=== PATIENT | female | born 1980 | race Caucasian/White ===

== ENCOUNTER 2021-02-23 17:30 | Emergency (ER) | payer OTHER ==
[~2021-02-23] VITALS: Ht 162.6 cm; Wt 79.5 kg
[~2021-02-23 17:30] MED LIST: ADV100 IH; ALBU8.5H3 IH; ALLERGY MEDS
[2021-02-23] MEDS ORDERED: ACETAMINOPHEN 325 MG TABLET PO ONE (18:30)
[2021-02-23] MEDS ORDERED: ALBU8HFA IH (18:36)
[2021-02-23] MEDS ORDERED: LORA10TA7 PO (18:36)
[2021-02-23] MEDS ORDERED: FLUT1DIS6 IH (18:36)
[2021-02-23 19:07] LABS: COVID AG,FIA SOURCE NASOPHARYNGEAL
[2021-02-23 20:04] VITALS: BP 134/95
[2021-03-01] MEDS ORDERED: ASCO500 PO (14:22)
[2021-03-01] MEDS ORDERED: ZINC220C14 PO (14:23)
[2021-03-01] MEDS ORDERED: ACET-2247 PO (14:26)
[2021-03-01] MEDS ORDERED: METH4TAB3 PO (14:34)
== END 2021-02-23 22:12 | disposition home or self-care (01) ==
LOC: EMS 17:40
DX: U07.1 COVID-19 (principal); J45.909 Unspecified asthma, uncomplicated; Z88.0 Allergy status to penicillin; Z79.899 Other long term (current) drug therapy
CPT/HCPCS: 87426; 99283; U0003

== ENCOUNTER 2021-07-14 16:33 | Emergency (ER) | payer OTHER ==
[~2021-07-14] VITALS: Ht 165.1 cm; Wt 86.4 kg
[~2021-07-14 16:33] MED LIST changes: +ACET-2247 PO; -ADV100 IH; -ALBU8.5H3 IH; +ALBU8HFA IH; -ALLERGY MEDS; +ASCO500 PO; +FLUT1DIS6 IH; +LORA10TA7 PO; +METH4TAB3 PO; +ZINC220C14 PO
[2021-07-14 17:10] VITALS: BP 143/87
[2021-07-14 17:58] LABS: BILIRUBIN,URINE NEGATIVE (NEGATIVE); GLUCOSE, URINE (UA) NEGATIVE (NEGATIVE); KETONES,URINE NEGATIVE (NEGATIVE); LEUKOCYTE ESTERASE ,URINE LARGE (NEGATIVE); NITRATE,URINE POSITIVE (NEGATIVE); OCCULT BLOOD,URINE LARGE (NEGATIVE); PROTEIN,URINE POS 1+ (NEGATIVE); UROBILINOGEN,URINE 0.2 mg/dL (<=1.0)
[2021-07-14 18:02] LABS: APPEARANCE,URINE SLIGHTLY CLOUDY (CLEAR)
[2021-07-14 18:11] LABS: BACTERIA,URINE Moderate /HPF (None Seen); RBC,URINE >100 /HPF (0-2); WBC,URINE 26-50 /HPF (0-5)
[2021-07-14 18:12] LABS: SQUAMOUS EPITHELIAL CELL,UR Moderate /LPF (None Seen)
== END 2021-07-14 18:42 | disposition home or self-care (01) ==
LOC: EMS 16:44
DX: N39.0 Urinary tract infection, site not specified (principal); J45.909 Unspecified asthma, uncomplicated; Z88.0 Allergy status to penicillin; Z79.899 Other long term (current) drug therapy
CPT/HCPCS: 81001; 84703; 87086; 99283

== ENCOUNTER 2021-12-16 22:55 | Emergency (ER) | payer OTHER ==
[~2021-12-16] VITALS: Ht 165.1 cm; Wt 86.4 kg
[2021-12-16 23:35] VITALS: BP 135/72
[2021-12-16 23:36] LABS: COVID AG,FIA SOURCE NASAL SWAB
[2021-12-17] MEDS ORDERED: ACET-66 PO (00:11)
[2021-12-17] MEDS ORDERED: PRED-554 PO (00:11)
[2021-12-17] MEDS ORDERED: ALBU8HFA IH (00:11)
== END 2021-12-17 00:19 | disposition home or self-care (01) ==
LOC: EMS 23:05
DX: J45.901 Unspecified asthma with (acute) exacerbation (principal); Z20.822 Contact with and (suspected) exposure to COVID-19
CPT/HCPCS: 71045; 93005; 99285; 36415-L1; 36415-TC

== ENCOUNTER 2021-12-19 15:35 | Emergency (ER) | payer OTHER ==
[~2021-12-19] VITALS: Ht 165.1 cm; Wt 88.6 kg
[~2021-12-19 15:35] MED LIST changes: +ACET-66 PO; +PRED-554 PO
[2021-12-19] MEDS ORDERED: IPRATROPIUM BROMIDE 0.5 MG/2.5 ML NEB SOLUTION NEB ONE (19:45)
[2021-12-19] MEDS ORDERED: ALBUTEROL SULFATE 5 MG/ML 20 ML NEB SOLN [BULK] NEB ONE (19:45)
[2021-12-19 20:22] LABS: BASOPHILS % (AUTO) 0.5 % (0.0-2.0); EOSINOPHILS % (AUTO) 0.1 % (1.0-6.0); HEMATOCRIT 38.2 % (36-46); HEMOGLOBIN 12.7 g/dL (12.0-16.0); LYMPHOCYTES # (AUTO) 2.8 K/uL (1.0-4.8); LYMPHOCYTES % (AUTO) 24.4 % (22.0-44.0); MEAN CORPUSCULAR HEMOGLOBIN 25.8 pg (26.0-34.0); MEAN CORPUSCULAR HGB CONC 33.2 G/dL (31.0-37.0); MEAN CORPUSCULAR VOLUME 78 fL (80-100); MONOCYTES # (AUTO) 0.5 K/uL (0.1-1.0); MONOCYTES % (AUTO) 4.3 % (2.0-9.0); NEUTROPHILS # (AUTO) 8.1 K/uL (1.8-7.7); NEUTROPHILS % (AUTO) 70.7 % (40.0-70.0); PLATELET COUNT (AUTO) 298 K/uL (150-450); RED BLOOD CELL COUNT(AUTO) 4.91 MIL/uL (4.00-5.20); RED CELL DISTRIBUTION WIDTH 15.9 % (11.5-14.5)
[2021-12-19 20:33] LABS: ANION GAP 12 mmol/L (8-16); CALCIUM, TOTAL 9.2 mg/dL (8.8-10.5); CARBON DIOXIDE 23 mmol/L (22-29); CHLORIDE 103 mmol/L (98-107); CREATININE 0.64 mg/dL (0.60-1.30); GLOMERULAR FILTR. RATE CALC > 60 mL/min (>60); GLUCOSE,RANDOM 92 mg/dL (70-110); POTASSIUM 3.2 mmol/L (3.5-5.1); SODIUM SERUM 138 mmol/L (136-145); UREA NITROGEN, BLOOD 10 mg/dL (7-18)
[2021-12-19 20:40] LABS: B-TYPE NATRIURETIC PEPTIDE < 5 pg/mL (0-100)
[2021-12-19 20:46] LABS: ALANINE AMINOTRANSFERASE 20 U/L (12-78); ALBUMIN 3.9 g/dL (3.4-5.0); ALKALINE PHOSPHATASE 75 U/L (46-116); ASPARTATE AMINOTRANSFERASE 13 U/L (15-37); BILIRUBIN,TOTAL 0.3 mg/dL (0.1-1.0)
[2021-12-19 21:36] VITALS: BP 129/74
== END 2021-12-19 22:16 | disposition home or self-care (01) ==
LOC: EMS 15:40
DX: J45.901 Unspecified asthma with (acute) exacerbation (principal); F41.9 Anxiety disorder, unspecified; Z87.09 Personal history of other diseases of the respiratory system; Z86.16 Personal history of COVID-19; Z88.0 Allergy status to penicillin
CPT/HCPCS: 71045; 80053; 83880; 84484; 85025; 85379; 93005; 94644; 99285; 36415-L1; 36415-TC; J7611

== ENCOUNTER 2023-01-14 15:10 | Emergency (ER) | payer OTHER ==
[~2023-01-14] VITALS: Ht 162.6 cm; Wt 86.4 kg
[~2023-01-14 15:10] MED LIST changes: -ACET-2247 PO; +ALBU18HF12 IH; -ALBU8HFA IH; -METH4TAB3 PO; -ZINC220C14 PO; +ZINC50CA3 PO
[2023-01-14 15:14] VITALS: TEMP 98
[2023-01-14 17:00] VITALS: BP 134/81; PULSE 91; RESP 17
[2023-01-14] MEDS ORDERED: CEPH-558 PO (17:04)
== END 2023-01-14 17:43 | disposition still patient (30) ==
LOC: EMS 15:12
DX: L03.032 Cellulitis of left toe (principal); J45.909 Unspecified asthma, uncomplicated; F41.9 Anxiety disorder, unspecified; Z88.0 Allergy status to penicillin
CPT/HCPCS: 99283; Z7502